=== PATIENT | male | born 1980 | race African-American/Black ===

== ENCOUNTER 2024-08-19 08:02 | Emergency (ER) | payer BC, SELFPAY ==
[2024-08-19 08:13] VITALS: BP 139/91; PULSE 104; RESP 16; TEMP 37.2; O2SAT 99
--- NOTE | 2024-08-19 08:23 | ED.URI ---
HPI - URI/Sore Throat General Chief Complaint: Upper Respiratory Infection Stated Complaint: Sinus/Ears Irritation Time Seen by Provider: 08/19/24 08:15 Source: patient, RN notes reviewed and old records reviewed Mode of arrival: ambulatory Limitations: no limitations History of Present Illness HPI Narrative: Patient with multiple sick contacts presents today with complaints of URI symptoms and left ear pain in particular. He reports runny nose and sore throat began a couple of days ago, last night began with left ear pain. He denies any injury or trauma. Has been taking TheraFlu and ibuprofen for his symptoms. Reports symptoms are resolved with the exception of the left ear pain. He voices no other concerns or complaints Related Data Allergies Allergy/AdvReac Type Severity Reaction Status Date / Time codeine AdvReac Intermediate Gastrointestinal Verified 08/19/24 08:23 Upset Review of Systems Review of Systems: All systems reviewed & are unremarkable except as noted in HPI and below Constitutional: Constitutional: Reports no additional constitutional complaints ENT: Reports system reviewed and no additional complaints, except as documented, Reports otalgia and Reports nasal discharge Cardiovascular: Cardiovascular: Reports no additional cardiovascular complaints Respiratory: Respiratory: Reports no additional respiratory complaints Gastrointestinal: Gastrointestinal: Reports no additional gastrointestinal complaints PMFSH Comments At the time of my signature, I reviewed and agree with the nursing past medical, surgical, social, and family history. There is no relevant family history pertinent to the patient complaint. Exam Const: General: cooperative, no acute distress, alert and awake Orientation/consciousness: oriented to person, oriented to place and oriented to time HENMT: Head: normal to inspection Ears: TM normal on the right and TM abnormal bulging on the left, erythematous on the left and with loss of landmarks on the left Resp: Effort & Inspection: normal respiratory effort and able to speak in complete sentences Auscultation: clear to auscultation bilaterally, no crackles, no rales, no rhonchi and no wheezes Cardio: Palpation: normal PMI Rate: regular rate Rhythm: regular rhythm Heart sounds: S1 normal heart sound present and S2 normal heart sound present Neuro: General: oriented to person, oriented to place and oriented to time Cranial nerves: Yes CN's II-XII intact bilaterally Psych: Appearance: grossly normal Thought process: Normal thought process present Insight: Good insight present (Psych) Judgement: Good judgement present (Psych) Course Course Level of Care: Express Care Visit Vital Signs Vital signs: Vital Signs Temperature 98.9 F 08/19/24 08:13 Pulse Rate 104 H 08/19/24 08:13 Respiratory Rate 16 08/19/24 08:13 Blood Pressure 139/91 H 08/19/24 08:13 Pulse Oximetry 99 08/19/24 08:13 Oxygen Delivery Room Air 08/19/24 08:13 Temperature 98.9 F 08/19/24 08:13 Pulse Rate 104 H 08/19/24 08:13 Respiratory Rate 16 08/19/24 08:13 Blood Pressure 139/91 H 08/19/24 08:13 Pulse Oximetry 99 08/19/24 08:13 Oxygen Delivery Room Air 08/19/24 08:13 Reviewed MDM - URI/Sore Throat MDM Narrative Medical decision making narrative: History and exam consistent with otitis media. Patient nontoxic appearing, stable for discharge home on p.o. antibiotic therapy. Discharge instructions reviewed with patient, as well as provided in writing per nursing staff. The instructions also include specific and strict return/GO TO THE ER as well as f/u information. All questions have been answered, and the patient deny any further questions with discharge and discharge plan. Some parts of this dictation were generated by voice recognition software and may contain typographical and/or grammatical inaccuracies. Differential Diagnosis Differential diagnosis: Likely upper respiratory infection, otitis media and pharyngitis Medical Records Attestation: I reviewed the patient's medical records. Discharge Plan Discharge Clinical Impression: Otitis media Qualifiers: Otitis media type: suppurative Chronicity: acute Laterality: left Recurrence: not specified as recurrent Spontaneous tympanic membrane rupture: without spontaneous rupture Qualified Code(s): H66.002 - Acute suppurative otitis media without spontaneous rupture of ear drum, left ear Patient Disposition: Home, Self-Care Condition: Stable Instructions: Antibiotic Form, Ear Infection (ED) Additional Instructions: Take medications as prescribed. Tylenol and/or ibuprofen per package instructions as needed for pain. Follow with primary care provider. Emergency department for new or worse symptoms Patient Language: Portuguese Prescriptions: New amoxicillin-pot clavulanate 875-125 mg tablet 1 tablet PO Q12H Qty: 20 0RF Follow-up/Referrals: Joel Contreras MD [Primary Care Provider] - 2 Weeks Time of Disposition: 08:25
== END 2024-08-19 08:28 | disposition home or self-care (01) ==
PROVIDERS: Emergency Provider Nurse Practitioner Family; PCP Family Medicine
DX: H66.002 Acute suppurative otitis media without spontaneous rupture of ear drum, left ear (principal)
CPT/HCPCS: 99213; G0463

== ENCOUNTER 2025-05-13 02:50 | Emergency (ER) | payer BC, SELFPAY ==
[2025-05-13 03:07] VITALS: BP 135/74; PULSE 73; RESP 14; TEMP 36.9; O2SAT 100
[2025-05-13] MEDS: KETOROLAC 30 MG/ML VIAL (*BKC) 15 MG IM (03:24)
--- NOTE | 2025-05-13 03:50 | ED.DENTAL ---
HPI - Dental/Oral General Chief complaint: Dental/Oral Stated complaint: toothache Time Seen by Provider: 05/13/25 02:54 History of Present Illness HPI Narrative: Patient presents here with dental pain, ongoing for last 1-2 days, has 2 teeth on the top and bottom molar that need to be pulled. Tried Tylenol much improvement Related Data Allergies Allergy/AdvReac Type Severity Reaction Status Date / Time codeine AdvReac Intermediate Gastrointestinal Verified 05/13/25 03:09 Upset Review of Systems Review of Systems: All systems reviewed & are unremarkable except as noted in HPI and below Exam Narrative: EXAMINATION OF ORGAN SYSTEMS/BODY AREAS: Constitutional: Vital signs per nursing GENERAL: Appears uncomfortable, holding his jaw HEAD: Normal with no signs of head trauma. EYES: EOMI, conjunctiva normal ENT: Dental abscess and tenderness left upper molar; tenderness left lower molar. No trismus. LUNGS: Nonlabored breathing. HEART: [Regular rate and rhythm] ABD: [Soft], [nontender to palpation] EXT: Normal range of motion SKIN: [No rashes or lesions.] NEURO: [Alert and oriented x 3. No gross focal sensory or strength deficits.] PSYCH: Normal affect Course Vital Signs Vital signs: Vital Signs Temperature 98.4 F 05/13/25 03:07 Pulse Rate 73 05/13/25 03:07 Respiratory Rate 14 05/13/25 03:07 Blood Pressure 135/74 05/13/25 03:07 Pulse Oximetry 100 05/13/25 03:07 Oxygen Delivery Room Air 05/13/25 03:07 Temperature 98.4 F 05/13/25 03:07 Pulse Rate 73 05/13/25 03:07 Respiratory Rate 14 05/13/25 03:07 Blood Pressure 135/74 05/13/25 03:07 Pulse Oximetry 100 05/13/25 03:07 Oxygen Delivery Room Air 05/13/25 03:07 MDM - Dental/Oral MDM Narrative Medical decision making narrative: ED COURSE AND MEDICAL DECISION MAKING: Patient with worsening dental pain and dental decay. He does have an abscess to the left upper molar however does not feel fluctuant and I do not feel it is drainable at this time. No systemic signs or symptoms. Analgesics are administered. [Dental block is performed with good relief of pain.] Antibiotics administered here and course given. Follow-up instructions given for dental/oral surgery clinics. Patient was given return precautions and discharged home in stable condition. Dental block procedure note Verbal consent obtained from the patient after risks and benefits were explained. [Right inferior alveolar block] was done with 1 mL of bupivacaine 0.5% with epi. Right superior posterior alveolar block was done with 1 mL of bupivacaine 0.5% with epi. The patient has significant relief after the injection and tolerated the procedure well. Discharge Plan Discharge Clinical Impression: Dental caries, Dental abscess Patient Disposition: Home Condition: Stable Instructions: Antibiotic Form, Dental Abscess (ED) Additional Instructions: Take the antibiotics as prescribed, and follow up with your dentist. You can always return to the emergency room for any further issues. Patient Language: Croatian Prescriptions: New amoxicillin-pot clavulanate 875-125 mg tablet 1 tablet PO Q12H Qty: 14 0RF ibuprofen 600 mg tablet 600 mg PO TID PRN (Reason: fever or pain) Qty: 30 0RF Follow-up/Referrals: Joel Contreras MD [Physician, Family Practice]
[2025-05-13 04:35] VITALS: BP 127/76; PULSE 69; RESP 14; TEMP 36.6; O2SAT 100
== END 2025-05-13 04:36 | disposition home or self-care (01) ==
LOC: ANHED 03:48
PROVIDERS: Emergency Provider Emergency Medicine
DX: K04.7 Periapical abscess without sinus (principal); K02.9 Dental caries, unspecified
CPT/HCPCS: 96372; 99283; A9270; J1885